=== PATIENT | female | born 1985 | race Caucasian/White ===

== ENCOUNTER → 2018-07-08 | Outpatient (CLI) | payer OTHER ==
[~2018-07-08] MED LIST: ASPI-1471 PO; DESO1TAB24 PO; DIPH0.5D12 IM; GENT5DRO31 OP; LORA-629 PO; MULT1CAP59 PO; SULF-198 PO
[2018-07-08 09:50] LABS: PLATELET COUNT, AUTOMATED 274 K/uL (150-450)
== END ==
LOC: LAB 08:48
PROVIDERS: ATTEND Student in an Organized Health Care Education/Training Program
DX: Z34.82 Encounter for supervision of other normal pregnancy, second trimester (principal)
CPT/HCPCS: 36415; 82950; 85025

== ENCOUNTER → 2018-08-31 | Outpatient (CLI) | payer OTHER ==
[~2018-08-31] MED LIST changes: +FLU60SYR36 IM; +FLUT16SP19 NS
== END ==
LOC: LAB 11:31
PROVIDERS: ATTEND Student in an Organized Health Care Education/Training Program
DX: Z34.93 Encounter for supervision of normal pregnancy, unspecified, third trimester (principal)
CPT/HCPCS: 87081

== ENCOUNTER 2018-09-28 16:00 | Inpatient (IN) | payer OTHER ==
[~2018-09-28] VITALS: Ht 175.3 cm; Wt 65.8 kg
[2018-09-29] MEDS ORDERED: FAMOTIDINE(*) 20MG/50ML PREMIX 50 ML IVPB PRN (05:19)
[2018-09-29] MEDS ORDERED: LR(*) 1000 ML BAG 1,000 ML IV SCH (05:19)
[2018-09-29] MEDS ORDERED: OXYTOCIN 30 UNIT/D5LR 500 ML 500 ML IV PRN (05:19)
[2018-09-29] MEDS ORDERED: METOCLOPRAMIDE 10 MG/2 ML SDV IVP PRN (05:20)
[2018-09-29] MEDS ORDERED: FLUSH 10 ML SYR IVP PRN (05:20)
[2018-09-29] MEDS ORDERED: LIDOCAINE 1% LOCAL 300 MG/30ML INJ PRN (05:20)
[2018-09-29] MEDS ORDERED: fentaNYL CITR 100 MCG/2 ML AMP IVP PRN (05:20)
[2018-09-29] MEDS ORDERED: LIDOCAINE/SOD BICARB 8.4% SYR SC PRN (05:20)
[2018-09-29] MEDS ORDERED: LR(*) 1000 ML BAG 1,000 ML ONE (05:46)
[2018-09-29] MEDS ORDERED: OXYTOCIN 30 UNIT/D5LR 500 ML 500 ML ONE (05:47)
[2018-09-29] MEDS ORDERED: fentaNYL CITR 100 MCG/2 ML AMP IT PRN (05:55)
[2018-09-29] MEDS ORDERED: FENTANYL/ROPIVACAINE 100 ML BAG EPI PRN (05:55)
[2018-09-29] MEDS ORDERED: BUPIVACAINE 0.5% INJ 30ML VIAL EPI PRN (05:55)
[2018-09-29] MEDS ORDERED: LIDOCAINE/PF 2% 200MG/10ML AMP 200 MG/10 ML AMPUL EPI PRN (05:55)
[2018-09-29] MEDS ORDERED: LIDO/EPI 2% MPF 1:200,000 20ML EPI PRN (05:55)
[2018-09-29] MEDS ORDERED: EPIDURAL KEYS XX PRN (05:56)
[2018-09-29 06:17] LABS: PLATELET COUNT, AUTOMATED 272 K/uL (150-450)
[2018-09-29] MEDS: BUPIVACAINE 0.25% MPF INJ EPI PRN (06:18)
[2018-09-29] MEDS ORDERED: fentaNYL CITR 100 MCG/2 ML AMP ONE (06:20)
[2018-09-29] MEDS ORDERED: BUPIVACAINE 0.25% MPF INJ ONE (06:20)
[2018-09-29] MEDS ORDERED: FENTANYL/ROPIVACAINE 100ML BAG 0 ML ONE (06:22)
[2018-09-29] MEDS ORDERED: ONDANSETRON 4 MG/2 ML VIAL ONE (06:29)
--- NOTE | 2018-09-29 06:31 | History & Physical ---
History of Present Illness Age of Patient: 33 : 2 Para or TPAL: 1 EDC per LMP: Sep 28, 2018 Estimated Gestational Age: 40.1 Chief Complaint Painful contractions. History of Present Illness Pt is a 33 y/o @ 40-1/ wga who presents to L&D with a chief complaint of painful contractions. Reports contractions started yesterday evening and have progressively worsened. Pt reports that she hasn't had any loss of amniotic fluid. Minimal vaginal bleeding/spotting. Good movement. History Patient's Blood Type: O Positive Rubella Status: Immune Group B Strep Screen: Negative Obstetrical History: @ 40-1/7 wga Past Medical History: Non contributory. Allergies: Coded Allergies: No Known Drug Allergies (Unverified , 08/27/16) Social History: Denies x3. Family History: FH: thyroid cancer MOTHER Med Rec Home Meds Reported Medications Multivitamin (MULTIVITAMINS) 1 Each Capsule, 1 EACH PO QDAY, CAPSULE 07/29/16 Review of Systems All Systems Reviewed/Normal: Yes, Except as Noted Constitutional: No Fever, No Weight Loss, No Weight Gain, No Chills, No Night Sweats, No Other Neurological: No Syncope, No Confusion, No Weakness, No Dizziness, No Slurred Speech, No Other Eyes: No Vision Change, No Loss of Vision, No Photophobia, No Other ENT: No Hearing Loss, No Sinus Congestion, No Sore Throat, No Ear Ache, No Tinnitus, No Other Cardiovascular: No Chest Pain, No Palpitations, No Orthostatic Hypotension, No Other Respiratory: No Shortness of Breath, No Cough, No Wheezing, No Other Gastrointestinal: No Nausea, No Vomiting, No Diarrhea, No Dysphagia, No Constipation, No Early Satiety, No Hematemesis, No Hematochezia, No Melena, No Abdominal Pain, No Other Genitourinary: No Dysuria, No Hematuria, No Urinary Incontinence, No Other Musculoskeletal: No Pain, No Sprain, No Strain, No Impaired Mobility, No Other Psychiatric: No Depression, No Anxiety, No Other Exam General Exam General Apperance: Alert/Awake/No Acute Distress Neuro: No Gross deficits Eyes: Normal Extraocular Movement & Vison, PERRLA ENT: Normal Cardiovascular: Regular Rate and Rhythm Respiratory: No Respiratory Distress Abdomen: Soft, Non-Tender, Non-Distended, Gravid - Non-Tender Extremities: No Cyanosis,Clubbing or Edema Integumentary: Skin Intact without Lesions or Rash Psychological: Alert & Oriented X3, Appropriate Mood & Affect Cervical Dialation: 7 Cervical Effacement (%): 80 Cervical Consistency: Soft Cervical Position: Anterior Station: -1 Presentation: Vertex (confirmed by sonogram) Uterine Contractions(Q min): 3 Uterine Contraction Strength: Moderate UC Resting Tone: Soft Fetus Estimated Weight(grams): 3000 Heart Tones: 130 Heart Tone Variabilty: Moderate FHT Accelerations: 15X15 FHT Decelerations: None FHT Category: I Medical Decision Making Data Points Result Diagram: 09/29/18 0604 Pre-Admit Course Medical Record Review: Yes VTE Prophylasis: Adult Deep Vein Thrombosis/Pulmonary: No Assessment and Plan 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 Amniotomy if necessary TATY SCHMITT DO Sep 29, 2018 06:31
[2018-09-29 06:45] VITALS: BP 118/81; Ht 175.3 cm; Wt 65.8 kg
--- NOTE | 2018-09-29 06:45 | Labor Progress Note ---
Labor Subjective Progress Notes Subjective Feeling better s/p epidural. Reports large gush of fluid. Vaginal Discharge/Fluid: Clear Fluid; No Bloody Fluid, No Green Tinged Fluid, No Dark Green Fluid, No Mucous, No Small Amount, No Moderate Amount, No Large Amount, No Other Labor Pain: Mild Neurological: No Headache, No Other Eyes: No Visual Disturbances Labor Objective Vaginal Discharge/Fluid?: Clear Fluid (spontaneous rupture of amniotic fluid) Cervical Dialation: 10 Cervical Effacement (%): 100 Cervical Consistency: Soft Cervical Position: Anterior Station: +2 Presentation: Vertex Uterine Contractions(Q min): 2 Uterine Contraction Strength: Mild UC Resting Tone: Soft Fetus Heart Tones: 125 Heart Tone Variabilty: Moderate FHT Accelerations: 15X15 FHT Decelerations: None FHT Category: I Other Result Diagram: 09/29/18 0604 Assessment and Plan 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 Pt complete. Will let spinal set up. Get catheter and start pushing with in the next 20 minutes. Expect . TATY SCHMITT DO Sep 29, 2018 06:45
[2018-09-29] MEDS ORDERED: BENZOCAINE 20% 60 ML BTL TP PRN (08:00)
[2018-09-29] MEDS ORDERED: GLYCERIN/WITCH HAZEL LEAF 1 PK TP PRN (08:00)
[2018-09-29] MEDS ORDERED: LANOLIN OINT 7 GM TUBE TP PRN (08:00)
[2018-09-29] MEDS ORDERED: APAP/HYDROCODONE 325/5 TAB PO PRN (08:00)
[2018-09-29] MEDS ORDERED: MAGNESIUM HYDROXIDE* 30ML UDCP PO PRN (08:00)
[2018-09-29] MEDS ORDERED: HYDROCORTISONE 2.5% CR 30GM TB PR PRN (08:00)
--- NOTE | 2018-09-29 08:03 | Anesthesia OB Pre-Anes Eval ---
History of Present Illness Anesthesia Start Date: Sep 29, 2018 Anesthesia Start Time: 06:15 OB Anesthesia Diagnosis: spontaneous labor, spontaneous ROM : 3 Para: 1 Result Diagram: 09/29/18 0604 Weight (Pounds): 145 Past Medical History Medical History: no pertinent history Surgical History: noncontributory Previous Anesthesia: epidural Attended Childbirth Classes?: No Hx Anesthesia Reactions: No Hx Family Anesthesia Reaction: No Home Meds Reported Medications Multivitamin (MULTIVITAMINS) 1 Each Capsule, 1 EACH PO QDAY, CAPSULE 07/29/16 Allergies: Coded Allergies: No Known Drug Allergies (Unverified , 08/27/16) Anesthesia OB ROS Airway Class: l GI ROS: clear liquids, ice chips ASA Classification: 2 Assessment and Plan Anesthesia Plan: SAB Assessment: 9cm dilation with bulging bag of water, imminent delivery anticipated. Plan SAB to get pt comfortable, will place epidural if able and if baby has not been delivered within 45-60 minutes. Anesthesia Stop Day: Sep 29, 2018 Anesthesia Stop Time: 06:30 JANESSA MORA CRNA Sep 29, 2018 06:50
--- NOTE | 2018-09-29 08:05 | Procedure Note ---
Anesthetic Placement Note Anesthesia Plan: SAB Permit for Anesthesia Signed: Yes Anesthesia Technique: Lateral Anesthesia Prep: Betadine Interspace: L 3-4 Local Anesthetic: 1% Lidocaine, 25 Gauge Needle Amount Local - cc's: 2 Anesthesia Needle: 25g Pencan w/Introducer Anesthesia Attempts: 1 Cerebral Spinal Fluid: Yes, Clear Anesthesia Tray: Lot Number ([id number]), Expiration Date (2019-09-29), Reference Number ([id number]) Anesthesia Medications: Intrathecal Dose: mcg Fentanyl (25), mg Spinal Bupivicaine (6), Time (0620) Complications: None Comment: Sterile gloves, skin prep, drape. Local infiltration L3-4, introducer midline approach, 25ga Pencan, clear FFCSF. Injection at 0620 using hyperbaric agent, resumed supine position. Good analgesia, Zofran 4mg IVP given for nausea prevention, Ephedrine 10 mg IVP for BP support after agent injected IT. Uneventful vaginal delivery, SAB effective throughout delivery and vaginal repair, tolerated well. JANESSA MORA SALES PLANNING ANALYST Sep 29, 2018 06:55
[2018-09-29 08:31] VITALS: BP 113/73
[2018-09-29] MEDS: DOCUSATE CALCIUM 240 MG CAP PO SCH ×2 (08:33→20:57)
[2018-09-29] MEDS: IBUPROFEN 800 MG TAB PO SCH ×2 (08:33→17:52)
--- NOTE | 2018-09-29 11:08 | OB Delivery Note ---
Delivery Note Vaginal Delivery Type: Spont. Vaginal Delivery Delivery Date: Sep 29, 2018 Delivery Time: 07:30 Estimated Gestational Age(wks): 40.1 Length of Labor Stage I (hrs): 2 Length of Labor Stage II (hrs): 1 Labor Stage III (minutes): 7 Delivery Anesthesia: Epidural (Spinal only) Infant Sex: Female Weight (gms): 2848 (6#4.5oz) Apgars: 1 Minute (8), 5 Minute (9) Repair Needed: 2nd Degree Estimated Blood Loss: 500 Delivery Complications: Other (Terminal meconium) TATY SCHMITT DO Sep 29, 2018 11:08
[2018-09-29 11:24] VITALS: BP 108/71
--- NOTE | 2018-09-29 14:29 | DELIVERY NOTE ---
DELIVERY DATE: September 29, 2018 SURGEON: Bladimir Oconnell DO ANESTHESIA: Spinal. PREOPERATIVE DIAGNOSIS 1. 33-year-old 2, para 1 at 40 and 1/7 weeks gestation. 2. Labor. POSTOPERATIVE DIAGNOSIS 1. 33-year-old 2, para 1 at 40 and 1/7 weeks gestation. 2. Labor. 3. Delivered. PROCEDURE Spontaneous vaginal delivery with repair of second-degree midline laceration. FINDINGS Liveborn female infant at 0730 of September 29, 2018 with Apgars of 8 and 9, weighing 2848 grams, 6 pounds, 4.5 ounces, three-vessel cord, intact placenta over a second-degree midline laceration. ESTIMATED BLOOD LOSS 500 mL. PATHOLOGY None. COMPLICATIONS None known. CONDITION Stable x2. Mother and infant to remain in LDRP. COUNTS Correct x2 for all needles, laps, sponges and instruments. LABOR SUMMARY Patient is a 33-year-old 2, para 1 at 40 and 1/7 weeks' gestation who presented to labor and delivery with a chief complaint of painful contractions. She noted the contractions started at 4:30 this morning. Upon cervical at 5, she was noted to be 7 cm. She was admitted to labor and delivery for labor. She requested an epidural and as soon as her laboratory evaluation was back she did receive a spinal secondary to her being 9 cm at time of procedure. Upon sitting back from the spinal, she did have spontaneous rupture of amnionic membranes that were noted to be clear. The patient continued to progress and was noted to be complete. She did have a catheter to drain her bladder after the spinal was placed. After about 20 to 30 minutes, the patient felt a significant urge to push, was coached by labor team on pushing and approximately 20 minutes later the delivery team was called and assembled for delivery. DELIVERY SUMMARY Patient was placed in the dorsal lithotomy position. She was prepped and draped in the usual sterile manner. Upon maternal pushing, the 's head delivered in a controlled manner followed by the anterior shoulders with gentle downward motion, the posterior shoulders with gentle upward motion. The remainder of the infant's body delivered spontaneously. It was noted that there was maternal meconium but this appeared to be from the umbilicus down. Mouth and nose were bulb suctioned. The infant was placed on the maternal abdomen and chest, where she was vigorously cleaned and dried and quickly had spontaneous respirations. After approximately three minutes of post delivery, the cord was palpated and felt with no longer having cord pulsations. The cord was doubly clamped and cut by the 's father. At this point, the was placed skin to skin and was continued to be monitored by the nursing staff. Cord blood gas was obtained. The placenta delivered spontaneously with gentle cord traction. Oxytocin was infused to help with uterine tone. The uterus massaged, deemed firm. Upon inspection of the perineum, vagina, cervix and labia, it was noted that there was a second-degree midline laceration. This was repaired with a 3-0 Vicryl in the usual running manner. With laceration repaired, it was inspected and found to be hemostatic. At this point, the labor bed was reassembled and the mother and were allowed to continue to marinelli. PRIYANKA
[2018-09-29 15:36] VITALS: BP 113/55
--- NOTE | 2018-09-29 15:39 | Anesthesia Post Eval Note ---
Anesthesia Post Eval Note Stabil, afebrile. Pt able to participate in Eval: Yes Cardiovascular Status: Satisfactory Respiratory Status: Satisfactory Pain Managment: Satisfactory PO Nausea/Vomiting: Satisfactory Temperature Management: Satisfactory Mental Status: Satisfactory, Alert, Oriented X3 Post-Op Hydration Status: Satisfactory, Tolerating PO Well, Voiding w/o Difficulty Anesthesia Type: SAB Anesthesia Tolerance: Ambulatory without symptoms PDPH following SAB this AM for uneventful vaginal delivery, no apparent complications. JANESSA MORA RESIDENT MEDICAL OFFICER Sep 29, 2018 15:39
[2018-09-29] MEDS: ACETAMINOPHEN 325 MG TAB PO PRN (17:52)
[2018-09-29 20:05] VITALS: BP 108/60
[2018-09-29 23:05] VITALS: BP 105/64
[2018-09-30] MEDS: IBUPROFEN 800 MG TAB PO SCH (01:00)
[2018-09-30 03:00] VITALS: BP 112/62
[2018-09-30 07:36] VITALS: BP 104/76
[2018-09-30] MEDS: ACETAMINOPHEN 325 MG TAB PO PRN (07:45)
[2018-09-30] MEDS ORDERED: MEASLES,MUMP,RUBELLA VAC 0.5ML SUBQ ONE (08:00)
[2018-09-30] MEDS ORDERED: INFLUENZA VIRUS VAC 0.5ML SYR IM ONLY ONE (08:00)
[2018-09-30] MEDS ORDERED: DIPHTH/TETANUS/ACEL. PERTUSSIS IM ONLY ONE (08:00)
--- NOTE | 2018-09-30 08:36 | OB/GYN Progress Note ---
OB Subjective Progress Notes Subjective Doing good this morning. Tolerating PO intake. Voiding with out difficulty. Lochia appropriate. Pain controlled with Tylenol and Ibuprofen. with minimal difficulty. GI: NEG Nausea, NEG Vomiting, NEG Flatus, NEG Bowel Movement : Voiding Well, Vaginal Bleeding, Scant Pain: Mild, Tolerating PO Pain Meds Neurological: No Headache, No Other Eyes: No Visual Disturbances OB Objective Physical Exam Vital Signs Date Time Temp Pulse Resp B/P (MAP) Pulse Ox O2 Delivery O2 Flow Rate FiO2 09/30/18 07:36 98.1 86 20 104/76 (85) Room Air 09/29/18 06:45 98 Intake and Output 09/30/18 07:00 Intake Total 240 ml Output Total 2860 ml Balance -2620 ml Intake Oral 240 ml Output Urine Total 2860 ml # Voids 3 General Appearance: Alert/Awake/No Acute Distress Neurological: No Gross deficits Eyes: Normal Extraocular Movement & Vison, PERRLA Respiratory: No Respiratory Distress Abdomen: Fundus Firm Extremities: No Cyanosis,Clubbing or Edema Integumentary: Skin Intact without Lesions or Rash Psychological: Alert & Oriented X3, Appropriate Mood & Affect Result Diagram: 09/30/18 0605 Assessment and Plan 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 Follow up in 2-3 weeks for post follow up. (2) Active labor at term OSKARTATY Sep 30, 2018 08:36
[2018-09-30] MEDS ORDERED: IBUP800T37 PO (08:47)
[2018-09-30] MEDS ORDERED: ACET-2007 PO (08:47)
--- NOTE | 2018-09-30 08:49 | OB/GYN Discharge Summary ---
Discharge Summary Reason for Hosp/Final Diag: (1) 40 weeks gestation of (2) Active labor at term Hospital Course & Plan: Patient presented to labor and delivery in active labor. Received epidural for pain control at spontaneous rupture of amniotic membranes. Patient progressed to complete. Pushed for only approximately 20-30 minutes and delivered a liveborn female . Patient remained in the hospital for one day . She was meeting postoperative/ goals and guidelines. Patient was ambulatory, voiding without difficulty, with appropriate lochia. Patient desired to be discharged home day #1. Lates Vital Signs Vital Signs Date Time Temp Pulse Resp B/P (MAP) Pulse Ox O2 Delivery O2 Flow Rate FiO2 09/30/18 07:36 98.1 86 20 104/76 (85) Room Air 09/29/18 06:45 98 Weight (Pounds): 145 Result Diagram: 09/30/18604 Condition: Improved Discharge: Home Home Meds Reported Medications Multivitamin (MULTIVITAMINS) 1 Each Capsule, 1 EACH PO QDAY, CAPSULE 07/29/16 Follow up with: [facility] [phone], Dr. Oconnell [phone] Follow up in: 2 wks PO Discharge Diet: As Tolerates, Resume Prior Admit Diet Discharge Activity: As Tolerates, Pelvic Rest TATY OCONNELL DO Sep 30, 2018 08:49
== END 2018-09-30 10:25 | disposition home or self-care (01) | DRG 807 ==
LOC: OB 09-29 05:14
PROVIDERS: ADMIT Obstetrics & Gynecology; ATTEND Obstetrics & Gynecology
PROC: 10E0XZZ Delivery of Products of Conception, External Approach (ICD-10-PCS; principal; 2018-09-29)
PROC: 0KQM0ZZ Repair Perineum Muscle, Open Approach (ICD-10-PCS; 2018-09-29)
DX: O77.0 Labor and delivery complicated by meconium in amniotic fluid (principal); Z37.0 Single live birth; O70.1 Second degree perineal laceration during delivery; Z3A.40 40 weeks gestation of pregnancy
CPT/HCPCS: 36415; 85025; 85027; 86703; 86850; 86900; 86901; J2405; J2590; J3010; J7120; S0020

== ENCOUNTER → 2019-04-14 | Outpatient (CLI) | payer OTHER ==
[2018-09-29 06:45] VITALS: BMI 24.5
[~2019-04-14] MED LIST changes: +ACET-2007 PO; -DIPH0.5D12 IM; +DIPH0.5S2 IM; +IBUP800T37 PO
--- NOTE | 2019-04-14 16:58 | RADIOLOGY IMAGING REPORT ---
FACILITY: [facility] PATIENT NAME: Mara Herman : 1985 MR: [id number] V: [id number] EXAM DATE: ORDERING PHYSICIAN: TATY SCHMITT TECHNOLOGIST: Location: [facility] Patient: Mara Herman : 1985 Visit/Account:[id number] Date of Sevice: 04/14/2019 Exam type: L-SPINE 2 OR 3 VIEW History: Spondylolithesis Comparison: None. Findings: AP and lateral views of the lumbar spine demonstrate five nonrib-bearing lumbar-type vertebral bodies . There is no evidence of acute fractures or subluxations. This mild disc space narrowing at L5-S1 IMPRESSION: 1. Mild disc space narrowing at L5-S1 Report Dictated By: Sandee Kumar MD at 04/14/2019 4:52 PM Report E-Signed By: Sandee Kumar MD at 04/14/2019 4:53 PM WSN:[email or web address]
== END ==
LOC: RAD 15:53
PROVIDERS: ATTEND Student in an Organized Health Care Education/Training Program
DX: M43.10 Spondylolisthesis, site unspecified (principal)
CPT/HCPCS: 72100